=== PATIENT | male | born 1960 | race Caucasian/White ===

== ENCOUNTER 2023-05-18 18:39 | Emergency (ER) | payer OTHER, MEDICAID ==
[~2023-05-18] VITALS: Ht 162.5 cm; Wt 90.7 kg
[2023-05-18 22:07] LABS: HEMATOCRIT 34.8 % (42.0-52.0); MEAN CELL VOLUME 94.1 fl (80.0-94.0); MEAN CORPUSCULAR HGB 30.3 pg (27.0-31.0); MEAN CORPUSCULAR HGB CONC 32.2 g/dl (33.0-37.0); PLATELET COUNT AUTOMATED 266 10*3/uL (130-400); RED CELL DISTRI WIDTH 15.8 % (0-14.5); WHITE BLOOD COUNT 15.4 10*3/uL (4.8-10.8)
[2023-05-18 22:09] LABS: MANUAL DIFF REFLEX YES
[2023-05-18] MEDS ORDERED: GABAPENTIN400 MG PO (22:09)
[2023-05-18] MEDS ORDERED: ROSUVASTATIN CA10 MG PO (22:10)
[2023-05-18] MEDS ORDERED: FLOMAX0.4 MG PO (22:10)
[2023-05-18] MEDS ORDERED: MILLIPRED5 MG PO ×2 (22:11)
[2023-05-18] MEDS ORDERED: METFORMIN850 MG PO (22:12)
[2023-05-18] MEDS ORDERED: MELOXICAM7.5 MG PO (22:12)
[2023-05-18] MEDS ORDERED: ACID REDUCER10 MG PO (22:12)
[2023-05-18] MEDS ORDERED: SINGULAIR4 M1 PO (22:13)
[2023-05-18] MEDS ORDERED: GLIPIZIDE5 MG PO (22:13)
[2023-05-18] MEDS ORDERED: TRULICITY0.75 MG/0. SC (22:14)
[2023-05-18] MEDS ORDERED: LANTUS SOL100 UNIT/1 SC (22:14)
[2023-05-18] MEDS ORDERED: AMOXICILLIN875 MG PO (22:15)
[2023-05-18] MEDS ORDERED: TERBINAFINE250 MG PO (22:16)
[2023-05-18 22:18] LABS: ACT PARTIAL THROMBO TIME 24.5 SECONDS (20.0-32.1); INTERNATIONAL NORM RATIO 0.9 (2.0-3.5)
[2023-05-18 22:29] LABS: ALKALINE PHOSPHATASE 99 U/L (46-116); BUN 38 mg/dl (9-23); CHLORIDE 101 mmol/L (98-107); LIPASE 75 U/L (12-53); POTASSIUM 4.8 mmol/L (3.4-5.1); SGPT/ALT 44 U/L (10-49); TOTAL PROTEIN 6.9 gm/dL (6.0-8.0)
[2023-05-18 22:34] LABS: PLATELET SUFFICIENCY NORMAL (NORMAL); TOTAL CELLS COUNTED 100 #CELLS
[2023-05-18 23:43] LABS: BILIRUBIN Negative (Negative); BLOOD Negative (Negative); CLARITY Clear (Clear); COLOR Yellow (Yellow); GLUCOSE Negative (Negative); KETONE Negative (Negative); LEUKO ESTERASE Negative (Negative); NITRITE Negative (Negative); SPECIFIC GRAVITY 1.025 (1.001-1.030); UROBILINOGEN 0.2 E.U./dl (0.0-1.0)
[2023-05-19] MEDS ORDERED: AMOX-CLAV 875-1 EACH PO (00:37)
== END 2023-05-19 01:08 | disposition home or self-care (01) ==
LOC: ED 18:39
PROVIDERS: Internal Medicine
DX: N39.0 Urinary tract infection, site not specified (principal); J06.9 Acute upper respiratory infection, unspecified; Z88.2 Allergy status to sulfonamides; Z88.5 Allergy status to narcotic agent

== ENCOUNTER 2023-06-21 18:40 | Inpatient (IN) | payer OTHER, MEDICAID ==
[~2023-06-21] VITALS: Ht 162.5 cm; Wt 90.0 kg
[~2023-06-21 18:40] MED LIST: ACID REDUCER10 MG PO; AMOX-CLAV 875-1 EACH PO; AMOXICILLIN875 MG PO; FLOMAX0.4 MG PO; GABAPENTIN400 MG PO; GLIPIZIDE5 MG PO; LANTUS SOL100 UNIT/1 SC; MELOXICAM7.5 MG PO; METFORMIN850 MG PO; MILLIPRED5 MG PO; ROSUVASTATIN CA10 MG PO; SINGULAIR4 M1 PO; TERBINAFINE250 MG PO; TRULICITY0.75 MG/0. SC
[2023-06-21 18:47] VITALS: BP 138/71
[2023-06-21] MEDS ORDERED: METFORMIN HYDR500 MG PO (19:24)
[2023-06-21] MEDS ORDERED: TRULICITY1.5 MG/0.5 SC (19:25)
[2023-06-21] MEDS ORDERED: MELOXICAM15 MG PO (19:25)
[2023-06-21 19:57] LABS: HEMATOCRIT 31.7 % (42.0-52.0); MEAN CELL VOLUME 95.5 fl (80.0-94.0); MEAN CORPUSCULAR HGB 29.8 pg (27.0-31.0); MEAN CORPUSCULAR HGB CONC 31.2 g/dl (33.0-37.0); MEAN PLATELET VOLUME 8.9 fl (9.6-12.3); NUCLEATED RED BLOOD CELL 0.1 10*3/uL (0.0-0.0); NUCLEATED RED BLOOD CELL 0.4 % (0.0-0.0); PLATELET COUNT AUTOMATED 246 10*3/uL (130-400); RED BLOOD COUNT 3.32 10*6/uL (4.50-5.90); RED CELL DISTRI WIDTH 16.3 % (0-14.5); WHITE BLOOD COUNT 20.6 10*3/uL (4.8-10.8)
[2023-06-21 20:02] LABS: MANUAL DIFF REFLEX YES
[2023-06-21 20:02] LABS: BILIRUBIN Negative (Negative); BLOOD Negative (Negative); CLARITY Clear (Clear); COLOR Yellow (Yellow); GLUCOSE Negative (Negative); KETONE Negative (Negative); LEUKO ESTERASE Negative (Negative); NITRITE Negative (Negative); PH 7.5 (4.5-8.0); SPECIFIC GRAVITY 1.015 (1.001-1.030)
[2023-06-21 20:16] LABS: BACTERIA 2+
[2023-06-21 20:25] VITALS: BP 138/71
[2023-06-21 20:35] LABS: TOTAL CELLS COUNTED 100 #CELLS
[2023-06-21 20:36] LABS: PLATELET SUFFICIENCY NORMAL (NORMAL); POLYCHROMASIA SLIGHT
[2023-06-21 20:37] LABS: ROULEAUX SLIGHT; TOXIC GRANULATION SLIGHT
[2023-06-21 22:19] VITALS: BP 135/70
[2023-06-21 22:51] VITALS: BP 135/70
[2023-06-22] VITALS (7 sets, daily range): BP systolic 98–145; BP diastolic 56–88
[2023-06-22 04:49] LABS: HEMATOCRIT 30.5 % (42.0-52.0); MEAN CELL VOLUME 96.2 fl (80.0-94.0); MEAN CORPUSCULAR HGB 30.6 pg (27.0-31.0); MEAN CORPUSCULAR HGB CONC 31.8 g/dl (33.0-37.0); MEAN PLATELET VOLUME 9.1 fl (9.6-12.3); NUCLEATED RED BLOOD CELL 0.3 % (0.0-0.0); PLATELET COUNT AUTOMATED 243 10*3/uL (130-400); RED BLOOD COUNT 3.17 10*6/uL (4.50-5.90); RED CELL DISTRI WIDTH 16.2 % (0-14.5); WHITE BLOOD COUNT 14.5 10*3/uL (4.8-10.8)
[2023-06-22 04:51] LABS: MANUAL DIFF REFLEX YES
[2023-06-22 05:21] LABS: ATYPICAL LYMPHS 1 % (0-0); PLATELET SUFFICIENCY NORMAL (NORMAL); TOTAL CELLS COUNTED 100 #CELLS
[2023-06-22 07:06] LABS: FREE T4 1.48 ng/dl (0.89-1.76); POTASSIUM 4.1 mmol/L (3.4-5.1)
[2023-06-22 07:07] LABS: VITAMIN D, 25-HYDROXY 57.9 ng/mL (30-100)
[2023-06-22] MEDS ORDERED: ECONAZOLE NITRA30 GM TP (14:45)
[2023-06-23] VITALS: BP 92/41
[2023-06-23 01:32] VITALS: BP 113/63
[2023-06-23 06:16] LABS: POTASSIUM 4.1 mmol/L (3.4-5.1)
[2023-06-23 08:00] VITALS: BP 111/63
[2023-06-23 12:00] VITALS: BP 107/62
[2023-06-23 15:56] VITALS: BP 104/43
[2023-06-23 20:00] VITALS: BP 96/42
[2023-06-24] VITALS: BP 96/56
[2023-06-24 06:26] LABS: HEMATOCRIT 29.7 % (42.0-52.0); MEAN CELL VOLUME 96.1 fl (80.0-94.0); MEAN CORPUSCULAR HGB 30.1 pg (27.0-31.0); MEAN CORPUSCULAR HGB CONC 31.3 g/dl (33.0-37.0); MEAN PLATELET VOLUME 8.6 fl (9.6-12.3); NUCLEATED RED BLOOD CELL 0.3 % (0.0-0.0); PLATELET COUNT AUTOMATED 234 10*3/uL (130-400); RED BLOOD COUNT 3.09 10*6/uL (4.50-5.90); RED CELL DISTRI WIDTH 16.4 % (0-14.5); WHITE BLOOD COUNT 13.5 10*3/uL (4.8-10.8)
[2023-06-24 06:33] LABS: MANUAL DIFF REFLEX YES
[2023-06-24 06:59] LABS: POTASSIUM 4.2 mmol/L (3.4-5.1)
[2023-06-24 07:11] LABS: TOTAL CELLS COUNTED 100 #CELLS
[2023-06-24 07:12] LABS: PLATELET SUFFICIENCY NORMAL (NORMAL); POLYCHROMASIA SLIGHT
[2023-06-24 08:00] VITALS: BP 119/70
[2023-06-24 14:00] VITALS: BP 123/69
[2023-06-24 20:00] VITALS: BP 119/50
[2023-06-25] VITALS: BP 114/56
[2023-06-25 06:30] LABS: HEMATOCRIT 25.6 % (42.0-52.0); MEAN CELL VOLUME 95.2 fl (80.0-94.0); MEAN CORPUSCULAR HGB 29.7 pg (27.0-31.0); MEAN CORPUSCULAR HGB CONC 31.3 g/dl (33.0-37.0); MEAN PLATELET VOLUME 9.1 fl (9.6-12.3); PLATELET COUNT AUTOMATED 244 10*3/uL (130-400); RED BLOOD COUNT 2.69 10*6/uL (4.50-5.90); RED CELL DISTRI WIDTH 16.1 % (0-14.5); WHITE BLOOD COUNT 12.3 10*3/uL (4.8-10.8)
[2023-06-25 06:38] LABS: MANUAL DIFF REFLEX YES
[2023-06-25 07:03] LABS: PLATELET SUFFICIENCY NORMAL (NORMAL); TOTAL CELLS COUNTED 100 #CELLS
[2023-06-25 07:04] LABS: POLYCHROMASIA SLIGHT
[2023-06-25 07:35] LABS: POTASSIUM 4.2 mmol/L (3.4-5.1)
[2023-06-25 08:00] VITALS: BP 127/57
[2023-06-25 12:00] VITALS: BP 133/72
[2023-06-25 16:00] VITALS: BP 121/72
[2023-06-25 20:00] VITALS: BP 135/71
[2023-06-26] VITALS: BP 120/51
[2023-06-26 06:10] LABS: POTASSIUM 4.9 mmol/L (3.4-5.1)
[2023-06-26 06:29] LABS: HEMATOCRIT 26.9 % (42.0-52.0); MEAN CELL VOLUME 94.4 fl (80.0-94.0); MEAN CORPUSCULAR HGB 29.8 pg (27.0-31.0); MEAN CORPUSCULAR HGB CONC 31.6 g/dl (33.0-37.0); MEAN PLATELET VOLUME 9.4 fl (9.6-12.3); PLATELET COUNT AUTOMATED 262 10*3/uL (130-400); RED BLOOD COUNT 2.85 10*6/uL (4.50-5.90); RED CELL DISTRI WIDTH 15.7 % (0-14.5)
[2023-06-26 06:36] LABS: MANUAL DIFF REFLEX YES
[2023-06-26 07:00] LABS: PLATELET SUFFICIENCY NORMAL (NORMAL); TOTAL CELLS COUNTED 100 #CELLS
[2023-06-26 07:01] LABS: OVALOCYTES FEW; POLYCHROMASIA SLIGHT
[2023-06-26 08:00] VITALS: BP 140/61
[2023-06-26 12:00] VITALS: BP 132/77
[2023-06-26 16:00] VITALS: BP 138/69
[2023-06-26 20:00] VITALS: BP 146/78
[2023-06-27] VITALS: BP 112/57
[2023-06-27 06:36] LABS: BASO # 0.1 10*3/uL (0.0-0.1); BASO % 0.4 % (0.0-1.0); EOS # 0.2 10*3/uL (0.0-0.4); EOS % 1.4 % (1.0-4.0); HEMATOCRIT 26.5 % (42.0-52.0); LYMPH # 1.5 10*3/uL (1.3-4.4); LYMPH % 12.5 % (27.0-41.0); MEAN CELL VOLUME 93.6 fl (80.0-94.0); MEAN CORPUSCULAR HGB 29.7 pg (27.0-31.0); MEAN CORPUSCULAR HGB CONC 31.7 g/dl (33.0-37.0); MEAN PLATELET VOLUME 9.4 fl (9.6-12.3); MONO # 1.2 10*3/uL (0.1-1.0); MONO % 9.8 % (3.0-9.0); NEUT # 8.6 10*3/uL (2.3-7.9); NEUT % 71.2 % (47.0-73.0); NUCLEATED RED BLOOD CELL 0.2 % (0.0-0.0); PLATELET COUNT AUTOMATED 303 10*3/uL (130-400); RED BLOOD COUNT 2.83 10*6/uL (4.50-5.90); RED CELL DISTRI WIDTH 15.6 % (0-14.5); WHITE BLOOD COUNT 12.1 10*3/uL (4.8-10.8)
[2023-06-27 07:12] LABS: POLYCHROMASIA SLIGHT; TOTAL CELLS COUNTED 100 #CELLS; TOXIC GRANULATION SLIGHT; VACUOLATION OF NEUTROPHILS SLIGHT
[2023-06-27 07:13] LABS: PLATELET SUFFICIENCY NORMAL (NORMAL)
[2023-06-27 07:16] LABS: POTASSIUM 4.5 mmol/L (3.4-5.1)
[2023-06-27 08:00] VITALS: BP 110/66
[2023-06-27 12:00] VITALS: BP 151/78
[2023-06-27 16:00] VITALS: BP 136/67
[2023-06-27 20:00] VITALS: BP 119/65
[2023-06-28] VITALS: BP 134/78
[2023-06-28 07:04] LABS: HEMATOCRIT 27.6 % (42.0-52.0); MEAN CELL VOLUME 94.5 fl (80.0-94.0); MEAN CORPUSCULAR HGB 30.1 pg (27.0-31.0); MEAN CORPUSCULAR HGB CONC 31.9 g/dl (33.0-37.0); MEAN PLATELET VOLUME 9.4 fl (9.6-12.3); NUCLEATED RED BLOOD CELL 0.1 10*3/uL (0.0-0.0); NUCLEATED RED BLOOD CELL 0.4 % (0.0-0.0); PLATELET COUNT AUTOMATED 339 10*3/uL (130-400); RED BLOOD COUNT 2.92 10*6/uL (4.50-5.90); RED CELL DISTRI WIDTH 15.7 % (0-14.5); WHITE BLOOD COUNT 11.5 10*3/uL (4.8-10.8)
[2023-06-28 07:06] LABS: MANUAL DIFF REFLEX YES
[2023-06-28 07:21] LABS: POTASSIUM 4.3 mmol/L (3.4-5.1)
[2023-06-28 08:00] VITALS: BP 142/75
[2023-06-28 08:05] LABS: POLYCHROMASIA SLIGHT; TOTAL CELLS COUNTED 100 #CELLS
[2023-06-28 08:06] LABS: PLATELET SUFFICIENCY NORMAL (NORMAL); TOXIC GRANULATION SLIGHT
[2023-06-28 12:00] VITALS: BP 145/72
[2023-06-28 16:00] VITALS: BP 125/75
[2023-06-28 20:00] VITALS: BP 114/65
[2023-06-29] VITALS: BP 120/75
[2023-06-29 06:40] LABS: MEAN CORPUSCULAR HGB 29.9 pg (27.0-31.0); MEAN CORPUSCULAR HGB CONC 31.8 g/dl (33.0-37.0); MEAN PLATELET VOLUME 9.1 fl (9.6-12.3); NUCLEATED RED BLOOD CELL 0.1 10*3/uL (0.0-0.0); NUCLEATED RED BLOOD CELL 0.7 % (0.0-0.0); PLATELET COUNT AUTOMATED 349 10*3/uL (130-400); RED BLOOD COUNT 2.98 10*6/uL (4.50-5.90); RED CELL DISTRI WIDTH 15.9 % (0-14.5); WHITE BLOOD COUNT 13.8 10*3/uL (4.8-10.8)
[2023-06-29 06:43] LABS: MANUAL DIFF REFLEX YES
[2023-06-29 07:03] LABS: POTASSIUM 4.2 mmol/L (3.4-5.1)
[2023-06-29 07:39] LABS: TOTAL CELLS COUNTED 100 #CELLS
[2023-06-29 07:40] LABS: OVALOCYTES FEW; PLATELET SUFFICIENCY NORMAL (NORMAL); POLYCHROMASIA SLIGHT
[2023-06-29 08:00] VITALS: BP 110/68
[2023-06-29] MEDS ORDERED: METOPROLOL SUCC25 M2 PO (11:20)
[2023-06-29] MEDS ORDERED: Humalog SQ (11:20)
[2023-06-29] MEDS ORDERED: NEURONTIN300 MG PO (11:20)
[2023-06-29 12:00] VITALS: BP 118/71
== END 2023-06-29 14:50 | DRG 871 ==
LOC: ED 18:40 → EDHOLD 06-22 00:55 → 4E 06-22 13:06
PROVIDERS: Family Medicine; Internal Medicine; Internal Medicine Nephrology; Student in an Organized Health Care Education/Training Program; ADMIT Internal Medicine; ATTEND Internal Medicine
PROC: 4A02XM4 Measurement of Cardiac Total Activity, External Approach (ICD-10-PCS; principal; 2023-06-24)
PROC: 3E073KZ Introduction of Other Diagnostic Substance into Coronary Artery, Percutaneous Approach (ICD-10-PCS; 2023-06-24)
DX: A41.9 Sepsis, unspecified organism (principal); E43 Unspecified severe protein-calorie malnutrition; N17.0 Acute kidney failure with tubular necrosis; I50.21 Acute systolic (congestive) heart failure; N39.0 Urinary tract infection, site not specified; E87.1 Hypo-osmolality and hyponatremia; I13.0 Hypertensive heart and chronic kidney disease with heart failure and stage 1 through stage 4 chronic kidney disease, or unspecified chronic kidney disease; D50.9 Iron deficiency anemia, unspecified; E83.42 Hypomagnesemia; E78.5 Hyperlipidemia, unspecified; G89.29 Other chronic pain; M54.9 Dorsalgia, unspecified; N18.31 Chronic kidney disease, stage 3a; E11.22 Type 2 diabetes mellitus with diabetic chronic kidney disease; E11.40 Type 2 diabetes mellitus with diabetic neuropathy, unspecified; D53.9 Nutritional anemia, unspecified; E11.65 Type 2 diabetes mellitus with hyperglycemia; M54.50 Low back pain, unspecified; N40.1 Benign prostatic hyperplasia with lower urinary tract symptoms; R35.0 Frequency of micturition; K21.9 Gastro-esophageal reflux disease without esophagitis; Z88.2 Allergy status to sulfonamides; Z88.6 Allergy status to analgesic agent; Z87.891 Personal history of nicotine dependence; Z82.49 Family history of ischemic heart disease and other diseases of the circulatory system; Z80.0 Family history of malignant neoplasm of digestive organs; Z79.4 Long term (current) use of insulin; Z68.34 Body mass index [BMI] 34.0-34.9, adult

== ENCOUNTER 2023-07-05 09:25 | Emergency (ER) | payer OTHER ==
[~2023-07-05] VITALS: Ht 162.5 cm; Wt 90.5 kg
[~2023-07-05 09:25] MED LIST changes: +ECONAZOLE NITRA30 GM TP; +Humalog SQ; +MELOXICAM15 MG PO; +METFORMIN HYDR500 MG PO; +METOPROLOL SUCC25 M2 PO; +NEURONTIN300 MG PO; +TRULICITY1.5 MG/0.5 SC
[2023-07-05 09:59] LABS: HEMATOCRIT 30.3 % (42.0-52.0); MEAN CELL VOLUME 96.5 fl (80.0-94.0); MEAN CORPUSCULAR HGB 29.6 pg (27.0-31.0); MEAN CORPUSCULAR HGB CONC 30.7 g/dl (33.0-37.0); MEAN PLATELET VOLUME 8.8 fl (9.6-12.3); NUCLEATED RED BLOOD CELL 0.4 % (0.0-0.0); PLATELET COUNT AUTOMATED 283 10*3/uL (130-400); RED BLOOD COUNT 3.14 10*6/uL (4.50-5.90); RED CELL DISTRI WIDTH 16.5 % (0-14.5); WHITE BLOOD COUNT 11.3 10*3/uL (4.8-10.8)
[2023-07-05 10:07] LABS: MANUAL DIFF REFLEX YES
[2023-07-05 10:15] LABS: ACT PARTIAL THROMBO TIME 22.7 SECONDS (20.0-32.1)
[2023-07-05 10:35] LABS: POTASSIUM 3.8 mmol/L (3.4-5.1); TOTAL PROTEIN 6.7 gm/dL (6.0-8.0)
[2023-07-05 10:53] LABS: ATYPICAL LYMPHS 1 % (0-0); PLATELET SUFFICIENCY NORMAL (NORMAL); POLYCHROMASIA SLIGHT; TOTAL CELLS COUNTED 100 #CELLS
== END 2023-07-05 14:05 ==
LOC: ED 09:25
PROVIDERS: Emergency Medicine
DX: U07.1 COVID-19 (principal); E11.9 Type 2 diabetes mellitus without complications; E78.00 Pure hypercholesterolemia, unspecified; R42 Dizziness and giddiness; Z88.2 Allergy status to sulfonamides; Z88.8 Allergy status to other drugs, medicaments and biological substances; Z98.890 Other specified postprocedural states; Z87.891 Personal history of nicotine dependence